=== PATIENT | female | born 1960 | race Caucasian/White ===

== ENCOUNTER 2020-02-29 00:26 | Outpatient (CLI) | payer MEDICAID | END 2020-02-29 00:27 | disposition critical access hospital (66) | LOC: EMS 00:26 | PROVIDERS: ATTEND Surgery | DX: R53.1 Weakness (principal); R07.89 Other chest pain; R51 Headache; R03.0 Elevated blood-pressure reading, without diagnosis of hypertension | CPT/HCPCS: A0425; A0427; A0999 ==

== ENCOUNTER 2020-02-29 00:57 | Emergency (ER) | payer MEDICAID ==
--- NOTE | 2020-02-29 01:00 | ED Physician Documentation ---
History of Present Illness - Stated complaint Stated Complaint: LEFT ARM WEAKNESS, JAW PAIN - History obtained from History obtained from: Patient - History of Present Illness Timing: Enter time (22:00), Today Pain level max: 4 Pain level now: 4 Improved by: no ameliorating factors Worsened by: no exacerbating factors Associated symptoms: STEPHENS, nausea, dyspnea - Additonal information Additional information: BIBA for chief complaint of LUE pain radiating to left jaw; this woke her from sleep at approximately 10 PM. Subsequently noted left-sided STEPHENS. Also has nausea but no vomiting. Patient moved recently to [facility] from [place]. She says she has HTN, supposed to be on two antihypertensives but cannot recall which ones and has not been taking them for a few years, nor has she seen a doctor for a few years, as well. Denies h/o cardiac problems. Given SLNTG en route by medics without improvement (STEPHENS worsened subsequent to NTG) Review of Systems Constitutional: reports: Reviewed and negative Eyes: reports: Reviewed and negative Ears: reports: Reviewed and negative Nose: reports: Reviewed and negative Throat: reports: Reviewed and negative Cardiac: denies: Chest pain / pressure, Palpitations, Pedal edema, Calf pain Respiratory: reports: Dyspnea. denies: Cough GI: reports: Nausea. denies: Abdominal Pain, Vomiting : denies: Dysuria, Frequency Skin: reports: Reviewed and negative Musculoskeletal: reports: Reviewed and negative Neurologic: reports: Headache. denies: Generalized weakness, Focal weakness, Numbness PD PAST MEDICAL HISTORY - Past Medical History Past Medical History: Yes Cardiovascular: Hypertension - Past Surgical History Past Surgical History: Yes General: Bowel surgery - Allergies Allergies/Adverse Reactions: Allergies Allergy/AdvReac Type Severity Reaction Status Date / Time No Known Drug Allergies Allergy Verified 02/29/20 01:05 - Living Situation Living Arrangement: reports: At home - Social History Does the pt smoke?: No PD ED PE NORMAL - Vitals Vital signs reviewed: Yes - General General: Alert and oriented X 3, No acute distress, Well developed/nourished - HEENT HEENT: PERRL, EOMI - Neck Neck: Supple, no meningeal sign - Cardiac Cardiac: RRR, No murmur, No gallop, No rub - Respiratory Respiratory: No respiratory distress, Clear bilaterally - Abdomen Abdomen: Soft, Non tender - Back Back: No CVA TTP - Derm Derm: Normal color, Warm and dry, No rash - Extremities Extremities: No edema - Neuro Neuro: Alert and oriented X 3 Results - Vitals Vitals: Vital Signs - 24 hr 02/29/20 02/29/20 02/29/20 01:05 01:30 01:45 Temperature 36.5 C Heart Rate 100 91 92 Respiratory 18 20 16 Rate Blood Pressure 243/128 H 234/121 H 201/118 H O2 Saturation 97 98 97 02/29/20 02/29/20 02/29/20 01:50 01:55 02:00 Temperature Heart Rate 71 69 66 Respiratory 18 18 17 Rate Blood Pressure 204/154 H 197/97 H 184/93 H O2 Saturation 97 97 97 02/29/20 02/29/20 02/29/20 02:05 02:10 02:15 Temperature Heart Rate 66 65 67 Respiratory 16 14 16 Rate Blood Pressure 183/93 H 179/92 H 177/95 H O2 Saturation 95 96 96 02/29/20 02/29/20 02/29/20 02:30 03:50 04:00 Temperature Heart Rate 67 74 72 Respiratory 17 18 18 Rate Blood Pressure 181/93 H 190/164 H 197/106 H O2 Saturation 96 97 97 02/29/20 02/29/20 02/29/20 04:30 05:00 05:33 Temperature Heart Rate 76 76 78 Respiratory 16 16 14 Rate Blood Pressure 196/105 H 184/78 H 193/99 H O2 Saturation 95 95 95 02/29/20 02/29/20 02/29/20 06:00 06:06 06:10 Temperature Heart Rate 86 65 62 Respiratory 16 16 14 Rate Blood Pressure 193/99 H 142/75 H 148/75 H O2 Saturation 95 97 98 02/29/20 02/29/20 02/29/20 06:15 06:30 07:21 Temperature 36.9 C Heart Rate 62 60 78 Respiratory 18 16 14 Rate Blood Pressure 139/65 H 123/60 124/74 O2 Saturation 96 96 99 Oxygen O2 Source Room air - EKG (time done) No standard instances Rate: Rate (enter#) (89) Rhythm: NSR, LAE [place]: Normal Intervals: Normal [place] QRS: LVH, Poor R wave progression Ischemia: Non specific changes - Labs Labs: Laboratory Tests 02/29/20 02/29/20 02/29/20 01:24 01:24 01:24 WBC 11.7 H RBC 4.35 Hgb 12.8 Hct 39.9 MCV 91.7 MCH 29.4 MCHC 32.1 RDW 14.0 Plt Count 302 MPV 9.3 Neut # (Auto) 9.0 H Lymph # (Auto) 1.7 [place] # (Auto) 0.7 Eos # (Auto) 0.2 Baso # (Auto) 0.1 Absolute Nucleated RBC 0.00 Nucleated RBC % 0.0 Sodium 136 Potassium 3.3 L Chloride 103 Carbon Dioxide 20 L Anion Gap 13.0 BUN 16 Creatinine 1.2 H Estimated GFR (MDRD) 46 L Glucose 140 H Calcium 8.7 Total Bilirubin 0.6 AST 14 ALT 14 Alkaline Phosphatase 91 Troponin I High Sens B-Natriuretic Peptide 400 H Total Protein 7.6 Albumin 3.8 Globulin 3.8 Albumin/Globulin Ratio 1.0 Lipase 27 02/29/20 02/29/20 01:24 03:23 WBC RBC Hgb Hct MCV MCH MCHC RDW Plt Count MPV Neut # (Auto) Lymph # (Auto) [place] # (Auto) Eos # (Auto) Baso # (Auto) Absolute Nucleated RBC Nucleated RBC % Sodium Potassium Chloride Carbon Dioxide Anion Gap BUN Creatinine Estimated GFR (MDRD) Glucose Calcium Total Bilirubin AST ALT Alkaline Phosphatase Troponin I High Sens 66.5 H* 204.3 H* B-Natriuretic Peptide Total Protein Albumin Globulin Albumin/Globulin Ratio Lipase - Rads (name of study) cxr Radiology: Prelim report reviewed, See rad report PD MEDICAL DECISION MAKING - ED course Complexity details: reviewed results, re-evaluated patient, considered differential, d/w patient ED course: although patient denies chest pain, chief c/o is LUE pain that radiates to left jaw. She has significant hypertensive BP readings in field and in ED that responded to IV lopressor, IV morphine (which was also given for her STEPHENS), and then IV labetalol. EKG c/w LVH with nonspecific ST changes in lateral leads. high sensitivity troponin is elevated on initial result (66), and 2-hr repeat is significantly higher (204). D/W Dr. Siddiqi, cardiology heating and air conditioning mechanic at [facility], who accepts transfer to [facility] Departure - Departure Disposition: 02 Transfer Acute Care Hosp Clinical Impression: NSTEMI (non-ST elevated myocardial infarction), Hypertension Condition: Stable Discharge Date/Time: 02/29/20 07:22
[2020-02-29] MEDS ORDERED: METOPROLOL 5 MG/5 ML VIAL IVP STA (01:09)
[2020-02-29] MEDS ORDERED: MORPHINE 2 MG/ML CARPUJECT IVP STA ×2 (01:09→02:30)
[2020-02-29] MEDS ORDERED: ONDANSETRON 4 MG/2 ML VIAL IVP STA ×3 (01:10→07:14)
[2020-02-29 01:30] LABS: BASOPHILS # (AUTO) 0.1 10^3/uL (0.0-0.1); BASOPHILS % (AUTO) 0.6 %; EOSINOPHILS # (AUTO) 0.2 10^3/uL (0.0-0.7); EOSINOPHILS % (AUTO) 1.4 %; HGB - HEMOGLOBIN 12.8 g/dL (12.0-16.0); LYMPHOCYTES # (AUTO) 1.7 10^3/uL (1.5-3.5); LYMPHOCYTES % (AUTO) 14.6 %; MEAN CORPUSCULAR HEMOGLOBIN 29.4 pg (27.0-31.0); MEAN CORPUSCULAR HGB CONC 32.1 g/dL (32.0-36.0); MEAN CORPUSCULAR VOLUME 91.7 fL (81.0-99.0); MEAN PLATELET VOLUME 9.3 fL (7.9-10.8); MONOCYTES # (AUTO) 0.7 10^3/uL (0.0-1.0); MONOCYTES % (AUTO) 5.7 %; NEUTROPHILS % (AUTO) 77.2 %; PLT - PLATELET COUNT 302 10^3/uL (130-450); RED BLOOD COUNT 4.35 10^6/uL (4.20-5.40); WHITE BLOOD COUNT 11.7 x10^3/uL (4.8-10.8)
[2020-02-29 01:44] LABS: ALBUMIN 3.8 g/dL (3.2-5.5); BILIRUBIN,TOTAL 0.6 mg/dL (0.2-1.0); CALCIUM 8.7 mg/dL (8.5-10.3); CREATININE 1.2 mg/dL (0.4-1.0); TOTAL PROTEIN 7.6 g/dL (6.7-8.2)
[2020-02-29] MEDS ORDERED: LABETALOL 20 MG/4 ML SYRINGE IVP STA (05:49)
[2020-02-29] MEDS ORDERED: HEPARIN 5,000 UNIT/ML VIAL ONE (06:10)
[2020-02-29 07:21] VITALS: BP 124/74
[2020-02-29] MEDS ORDERED: ONDANSETRON 4 MG/2 ML VIAL ONE (07:22)
--- NOTE | 2020-02-29 10:06 | XRAY Report ---
PROCEDURE: Chest 1 View X-Ray INDICATIONS: dyspnea TECHNIQUE: One view of the chest was acquired. COMPARISON: None available. FINDINGS: Surgical changes and devices: None. Lungs and pleura: No pleural effusions or pneumothorax. Lungs are clear, but hyperexpanded. Mediastinum: The aorta is prominent and tortuous. The cardiac contours are mildly enlarged. Bones and chest wall: No suspicious bony lesions. Age-appropriate degenerative changes are seen. Overlying soft tissues appear unremarkable. IMPRESSION: Mild cardiomegaly. Hyperexpanded lungs. Note: No significant discrepancy from the preliminary report. Reviewed by: Meño Moore MD on 02/29/2020 9:05 AM [facility] Approved by: Meño Moore MD on 02/29/2020 9:05 AM [facility] Station ID: [id number]
== END 2020-02-29 07:22 | disposition short-term general hospital (02) ==
LOC: ED 00:57
DX: I21.4 Non-ST elevation (NSTEMI) myocardial infarction (principal); I10 Essential (primary) hypertension
CPT/HCPCS: 36415; 71045; 80053; 83690; 83880; 84484; 85025; 93005; 96374; 96375; 96376; 99285

== ENCOUNTER 2020-02-29 07:23 | Outpatient (CLI) | payer MEDICAID | END 2020-02-29 07:24 | disposition short-term general hospital (02) | LOC: EMS 07:23 | PROVIDERS: ATTEND Surgery | DX: I21.4 Non-ST elevation (NSTEMI) myocardial infarction (principal) | CPT/HCPCS: A0425; A0426 ==

== ENCOUNTER 2020-03-06 08:22 | Emergency (ER) | payer MEDICAID ==
[2020-03-06] MEDS ORDERED: LORazepam 2 MG/ML VIAL IVP STA (08:58)
[2020-03-06 09:01] LABS: BASOPHILS # (AUTO) 0.1 10^3/uL (0.0-0.1); BASOPHILS % (AUTO) 0.5 %; EOSINOPHILS # (AUTO) 0.2 10^3/uL (0.0-0.7); EOSINOPHILS % (AUTO) 1.8 %; HGB - HEMOGLOBIN 11.3 g/dL (12.0-16.0); LYMPHOCYTES # (AUTO) 1.7 10^3/uL (1.5-3.5); LYMPHOCYTES % (AUTO) 12.8 %; MEAN CORPUSCULAR HEMOGLOBIN 29.2 pg (27.0-31.0); MEAN CORPUSCULAR HGB CONC 31.7 g/dL (32.0-36.0); MEAN CORPUSCULAR VOLUME 92.2 fL (81.0-99.0); MEAN PLATELET VOLUME 10.1 fL (7.9-10.8); MONOCYTES # (AUTO) 1.3 10^3/uL (0.0-1.0); MONOCYTES % (AUTO) 9.9 %; NEUTROPHILS # (AUTO) 9.7 10^3/uL (1.5-6.6); NEUTROPHILS % (AUTO) 74.5 %; PLT - PLATELET COUNT 362 10^3/uL (130-450); RED BLOOD COUNT 3.87 10^6/uL (4.20-5.40)
--- NOTE | 2020-03-06 09:01 | ED Physician Documentation ---
History of Present Illness - Stated complaint Stated Complaint: FEVER/POST PROCEDURE COMPLICATION - Chief complaint Chief Complaint: Cardiac - History obtained from History obtained from: Patient, Family - Additonal information Additional information: Patient is brought to the emergency department by her sister after experiencing borderline fever at 100 degrees last night and anxiety and shortness of breath. The patient had a cardiac catheterization done approximately 4 days ago over at [facility] after experiencing angina. She had 2 stents placed and was discharged the following day. Patient states upon discharge, she was feeling quite well, but has not been able to sleep since. She states that she is trying to quit smoking because of her coronary artery disease, but that she has had a l ot of anxiety and that this is especially bad at night. The patient states her blood pressure was out of control when she came here and that she was started on a new medication regimen in the hospital, which includes Norvasc, Coreg, and Zestril. She is also taking Lipitor, Plavix, aspirin, and Nitrostat, as well as Protonix. The patient states that she is feeling a little better now, and that her blood pressures have improved since starting her new regimen. Patient states her cath site has been steadily improving and though it is still sore, she has not noticed any redness, swelling, or induration. No other complaints at this time. Patient has not taken any Tylenol or ibuprofen for fever. The patient states she was intubated for the procedure. She is not sure if she had a urinary catheterization or not. Review of Systems Ten Systems: 10 systems reviewed and negative Constitutional: reports: Fever Eyes: reports: Reviewed and negative Ears: reports: Reviewed and negative Nose: reports: Reviewed and negative Throat: reports: Reviewed and negative Cardiac: reports: Reviewed and negative Respiratory: reports: Dyspnea GI: reports: Reviewed and negative : reports: Reviewed and negative Skin: reports: Reviewed and negative Musculoskeletal: reports: Reviewed and negative Neurologic: reports: Reviewed and negative Psychiatric: reports: Anxiety Endocrine: reports: Reviewed and negative Immunocompromised: reports: Reviewed and negative PD PAST MEDICAL HISTORY - Past Medical History Cardiovascular: Hypertension - Past Surgical History Past Surgical History: Yes General: Bowel surgery - Present Medications Home Medications: Ambulatory Orders Medication Instructions Recorded Confirmed Zolpidem Tartrate [Ambien] 10 mg PO QPM PRN #30 tablet 03/06/20 - Allergies Allergies/Adverse Reactions: Allergies Allergy/AdvReac Type Severity Reaction Status Date / Time No Known Drug Allergies Allergy Verified 03/06/20 08:40 - Social History Does the pt smoke?: No PD ED PE NORMAL - Vitals Vital signs reviewed: Yes - General General: Alert and oriented X 3, No acute distress - HEENT HEENT: Atraumatic, PERRL, EOMI, Moist mucous membranes - Neck Neck: Supple, no meningeal sign - Cardiac Cardiac: RRR, No murmur, Strong equal pulses - Respiratory Respiratory: No respiratory distress, Clear bilaterally - Abdomen Abdomen: Soft, Non tender, Non distended - Derm Derm: Warm and dry, No rash, Other (Mild subacute contusion in the patient's right inguinal area. Puncture site from catheterization is without erythema, induration, or fluctuance. No drainage. Area is appropriately mildly tender.) - Extremities Extremities: No deformity - Neuro Neuro: Alert and oriented X 3 - Psych Psych: Normal mood, Normal affect Results - Vitals Vitals: Oxygen O2 Source Room air - EKG (time done) 0839 Rate: Rate (enter#) (67) Rhythm: NSR, LAE [place]: Normal Intervals: Normal [place] QRS: LVH Ischemia: Normal ST segments, T wave inversion Compare to prior EKG: Unchanged from prior EKG (02/29/20) Computer interpretation: Agree with computer - Labs Labs: Microbiology 03/06/20 09:15 Blood Culture - Preliminary Blood NO GROWTH AFTER 2 DAYS 03/06/20 09:26 Blood Culture - Preliminary Blood NO GROWTH AFTER 2 DAYS Laboratory Tests 03/06/20 03/06/20 03/06/20 08:43 08:43 08:43 WBC 13.0 H RBC 3.87 L Hgb 11.3 L Hct 35.7 L MCV 92.2 MCH 29.2 MCHC 31.7 L RDW 14.0 Plt Count 362 MPV 10.1 Neut # (Auto) 9.7 H Lymph # (Auto) 1.7 [place] # (Auto) 1.3 H Eos # (Auto) 0.2 Baso # (Auto) 0.1 Absolute Nucleated RBC 0.00 Nucleated RBC % 0.0 Sodium 135 Potassium 4.1 Chloride 100 L Carbon Dioxide 23 Anion Gap 12.0 BUN 20 Creatinine 1.3 H Estimated GFR (MDRD) 42 L Glucose 106 H Calcium 9.4 Total Bilirubin 0.7 AST 11 ALT 16 Alkaline Phosphatase 78 Troponin I High Sens 254.7 H* B-Natriuretic Peptide Total Protein 7.6 Albumin 3.7 Globulin 3.9 Albumin/Globulin Ratio 0.9 L Lipase 40 Urine Color Urine Clarity Urine pH Ur Specific [place] Urine Protein Urine Glucose (UA) Urine Ketones Urine Occult Blood Urine Nitrite Urine Bilirubin Urine Urobilinogen Ur Leukocyte Esterase Ur Microscopic Review Urine Culture Comments 03/06/20 03/06/20 03/06/20 09:15 10:00 10:28 WBC RBC Hgb Hct MCV MCH MCHC RDW Plt Count MPV Neut # (Auto) Lymph # (Auto) [place] # (Auto) Eos # (Auto) Baso # (Auto) Absolute Nucleated RBC Nucleated RBC % Sodium Potassium Chloride Carbon Dioxide Anion Gap BUN Creatinine Estimated GFR (MDRD) Glucose Calcium Total Bilirubin AST ALT Alkaline Phosphatase Troponin I High Sens 238.5 H* B-Natriuretic Peptide 110 H Total Protein Albumin Globulin Albumin/Globulin Ratio Lipase Urine Color YELLOW Urine Clarity CLEAR Urine pH 6.5 Ur Specific [place] 1.020 Urine Protein TRACE Urine Glucose (UA) NEGATIVE Urine Ketones NEGATIVE Urine Occult Blood NEGATIVE Urine Nitrite NEGATIVE Urine Bilirubin NEGATIVE Urine Urobilinogen 0.2 (NORMAL) Ur Leukocyte Esterase NEGATIVE Ur Microscopic Review NOT INDICATED Urine Culture Comments NOT INDICATED - Rads (name of study) CXR Radiology: Final report received, EMP read indepedently, See rad report (cardiomegaly and pulmonary edema, slightly worse than previous CXR) PD MEDICAL DECISION MAKING - ED course Complexity details: reviewed old records, reviewed results, re-evaluated patient, considered differential, d/w patient, d/w family ED course: The patient was worked up with labs, EKG, and chest x-ray. I reviewed her records from [facility]. The patient's canvas goods supervisor was Dr. Harmon, with whom the patient has an upcoming appointment on March 12. The pt's troponin was elevated, which is not surprising, given the fact that she had a cardiac procedure within the past several days, and felt the likelihood of acute NE was very low. Repeat of this showed it to be slightly lower than it had been. I felt the pt's sx were mostly due to quitting smoking acutely and recently. She does also have mild underlying CHF, which was demonstrated today. We will continue her home meds for this, as the pt's sats are good here, her lungs are clear, and respirations are not fast or labored. The pt was found to be feeling better after a small dose of Ativan. She has requested a sleep aid, so I have given her a small prescription for Ambien. The pt has an appt with her service attendant cafeteria in less than a week. I have d/w her that she needs to bring these issues up with her PCP and service attendant cafeteria when she sees them. We have discussed the usual indications for return. Departure - Departure Disposition: Home, Self Care Clinical Impression: Anxiety Coronary artery disease Qualifiers: Coronary Disease-Associated Artery/Lesion type: unspecified vessel or lesion type [place] vs. transplanted heart: ho-chunk heart Associated angina: without angina Qualified Code(s): I25.10 - Atherosclerotic heart disease of [place] coronary artery without angina pectoris Condition: Stable Instructions: Anxiety Body Response, Anxiety Disorder Prescriptions: Zolpidem Tartrate [Ambien] 10 mg PO QPM PRN #30 tablet PRN Reason: Anxiety Comments: Your labs, overall, look good. Your EKG does not show signs of new blood flow compromise to your heart. The troponin, which is a chemical release from your heart muscle that we look for in your blood when there is heart muscle damage, is significantly elevated. However, this is not surprising since you just had a cardiac procedure within the last several days. The repeat level is actually a little lower than the initial level. Please continue your home medications. Please also plan to keep your follow-up appointment for next week with your service attendant cafeteria. We will put you on something for anxiety and sleep and you may follow-up with your primary care physician about further sleep assistance, if needed. If you develop severe shortness of breath or worsening chest pain, please return to the emergency department for reevaluation. Discharge Date/Time: 03/06/20 11:36
[2020-03-06 09:08] LABS: ALBUMIN 3.7 g/dL (3.2-5.5); ALBUMIN/GLOBULIN RATIO 0.9 (1.0-2.2); BILIRUBIN,TOTAL 0.7 mg/dL (0.2-1.0); CALCIUM 9.4 mg/dL (8.5-10.3); CREATININE 1.3 mg/dL (0.4-1.0); TOTAL PROTEIN 7.6 g/dL (6.7-8.2)
--- NOTE | 2020-03-06 09:25 | XRAY Report ---
PROCEDURE: Chest 1 View X-Ray INDICATIONS: Chest pain TECHNIQUE: One view of the chest was acquired. COMPARISON: 02/29/2020. FINDINGS: Surgical changes and devices: None. Lungs and pleura: There is increased perihilar pulmonary vascular prominence with a basilar predomin ance suggestive of pulmonary edema. No pleural effusions or pneumothorax. Mediastinum: Mediastinal contours appear unchanged. Heart size is enlarged. Bones and chest wall: No suspicious bony lesions. Overlying soft tissues appear unremarkable. IMPRESSION: 1. Cardiomegaly with increased pulmonary edema suggestive of congestive heart failure. Reviewed by: Shayne Benavidez MD on 03/06/2020 9:23 AM PDT Approved by: Shayne Benavidez MD on 03/06/2020 9:23 AM PDT Station ID: [id number]
[2020-03-06 10:17] LABS: BILIRUBIN,URINE NEGATIVE (NEGATIVE); GLUCOSE, URINE (UA) NEGATIVE (NEGATIVE); KETONES,URINE (UA) NEGATIVE (NEGATIVE); LEUKOCYTE ESTERASE, URINE NEGATIVE (NEGATIVE); NITRITE,URINE NEGATIVE (NEGATIVE); OCCULT BLOOD,URINE NEGATIVE (NEGATIVE); PH,URINE 6.5 PH (5.0-7.5); PROTEIN,URINE TRACE mg/dL (NEGATIVE); UROBILINOGEN,URINE 0.2 (NORMAL) E.U./dL (NORMAL)
[2020-03-06 10:19] LABS: CLARITY,URINE CLEAR (CLEAR)
[2020-03-06 11:04] VITALS: BP 161/79
== END 2020-03-06 11:36 | disposition home or self-care (01) ==
LOC: ED 08:22
DX: F41.9 Anxiety disorder, unspecified (principal); I11.0 Hypertensive heart disease with heart failure; I50.9 Heart failure, unspecified; I25.10 Atherosclerotic heart disease of native coronary artery without angina pectoris; Z98.61 Coronary angioplasty status; Z87.891 Personal history of nicotine dependence; Z79.02 Long term (current) use of antithrombotics/antiplatelets; Z79.82 Long term (current) use of aspirin
CPT/HCPCS: 36415; 71045; 80053; 81003; 83690; 83880; 84484; 85025; 87040; 93005; 96374; 99284; 99285; J2060; 81001; 87086

== ENCOUNTER 2020-04-29 09:20 | Outpatient (CLI) | payer MEDICAID ==
--- NOTE | 2020-04-29 15:13 | CT Report ---
PROCEDURE: Low Dose Lung Cancer Screen INDICATIONS: HX OF SMOKING TECHNIQUE: Noncontrast low-dose 5 mm thick sections acquired from the pulmonary apices to the posterior costophr enic angles. 7 mm thick coronal and sagittal MIP reformats were then acquired. For radiation dose r eduction, the following was used: automated exposure control, adjustment of mA and/or kV according t o patient size. COMPARISON: Chest x-ray 03/06/2020, 02/29/2020 FINDINGS: Image quality: Excellent. Lungs and pleura: No effusions or consolidations. No pneumothorax. No nodules are identified. Mediastinum: Heart size is normal. No pericardial effusion. No mediastinal adenopathy by size crit eria. Thoracic aorta and central pulmonary arteries are normal in size. Esophagus is normal in cony alondra. No hiatal hernia. Bones and chest wall: No suspicious bony lesions. No vertebral body compression fractures. No axil mona or supraclavicular adenopathy by size criteria. The thyroid is normal in size. Abdomen: Visualized upper abdomen solid organs and bowel loops appear normal in the absence of contr ast. IMPRESSION: 1. No acute pulmonary process. Lung rads category 1. Recommendation: Annual CT screening. Reviewed by: Odalis Rodriugez MD on 04/29/2020 3:11 PM PDT Approved by: Odalis Rodriguez MD on 04/29/2020 3:11 PM PDT Station ID: [id number]
== END 2020-04-29 09:21 | disposition home or self-care (01) ==
LOC: DI 09:20
PROVIDERS: ATTEND Registered Nurse
DX: Z12.2 Encounter for screening for malignant neoplasm of respiratory organs (principal); F17.210 Nicotine dependence, cigarettes, uncomplicated

== ENCOUNTER 2020-09-07 07:24 | Outpatient (CLI) | payer MEDICAID ==
[2020-09-07 16:05] LABS: BASOPHILS # (AUTO) 0.1 10^3/uL (0.0-0.1); EOSINOPHILS # (AUTO) 0.2 10^3/uL (0.0-0.7); EOSINOPHILS % (AUTO) 1.8 %; HCT - HEMATOCRIT 40.7 % (37.0-47.0); HGB - HEMOGLOBIN 12.8 g/dL (12.0-16.0); LYMPHOCYTES # (AUTO) 1.8 10^3/uL (1.5-3.5); LYMPHOCYTES % (AUTO) 18.3 %; MEAN CORPUSCULAR HEMOGLOBIN 31.1 pg (27.0-31.0); MEAN CORPUSCULAR HGB CONC 31.4 g/dL (32.0-36.0); MEAN CORPUSCULAR VOLUME 98.8 fL (81.0-99.0); MEAN PLATELET VOLUME 10.1 fL (7.9-10.8); MONOCYTES # (AUTO) 0.9 10^3/uL (0.0-1.0); NEUTROPHILS # (AUTO) 6.7 10^3/uL (1.5-6.6); NEUTROPHILS % (AUTO) 69.6 %; PLT - PLATELET COUNT 352 10^3/uL (130-450); RED BLOOD COUNT 4.12 10^6/uL (4.20-5.40); RED CELL DISTRIBUTION WIDTH 13.5 % (12.0-15.0); WHITE BLOOD COUNT 9.6 x10^3/uL (4.8-10.8)
[2020-09-07 16:32] LABS: ALBUMIN 3.8 g/dL (3.2-5.5); ALKALINE PHOSPHATASE 87 IU/L (42-121); ALT ALANINE AMINOTRANSFERASE 17 IU/L (10-60); AST ASPARTATE AMINOTRANSFERASE 15 IU/L (10-42); BILIRUBIN,TOTAL 0.5 mg/dL (0.2-1.0); BUN - BLOOD UREA NITROGEN 17 mg/dL (6-20); CALCIUM 8.9 mg/dL (8.5-10.3); CARBON DIOXIDE - CO2 22 mmol/L (21-32); CHLORIDE 105 mmol/L (101-111); GFR - MDRD 57 (>89); GLUCOSE 131 mg/dL (70-100); POTASSIUM 4.3 mmol/L (3.5-5.0); SODIUM 136 mmol/L (135-145); TOTAL PROTEIN 7.8 g/dL (6.7-8.2)
[2020-09-07 16:33] LABS: CHOLESTEROL 135 mg/dL; HDL CHOLESTEROL 45 mg/dL; LDL CHOLESTEROL,CALCULATED 37 mg/dL; LDL/HDL RATIO 0.8 (<4.4); TRIGLYCERIDES 264 mg/dL; VLDL CHOLESTEROL 53 mg/dL
[2020-09-07 16:35] LABS: THYROID STIMULATING HORMONE 3.09 uIU/mL (0.34-5.60)
== END 2020-09-07 07:25 | disposition home or self-care (01) ==
LOC: LAB.S 07:24
PROVIDERS: ATTEND Registered Nurse
DX: G43.909 Migraine, unspecified, not intractable, without status migrainosus (principal); I25.110 Atherosclerotic heart disease of native coronary artery with unstable angina pectoris; F17.200 Nicotine dependence, unspecified, uncomplicated; F41.8 Other specified anxiety disorders
CPT/HCPCS: 36415; 80050; 80061; 83721

== ENCOUNTER 2020-10-30 08:00 | Outpatient (CLI) | payer MEDICAID ==
--- NOTE | 2020-10-30 16:21 | XRAY Report ---
PROCEDURE: Foot 3 View LT INDICATIONS: SPRAIN OF LEFT FOOT TECHNIQUE: 3 views of the foot were acquired. COMPARISON: None FINDINGS: Bones: No fractures or dislocations. No suspicious bony lesions. Soft tissues: No tibiotalar joint effusion. Achilles tendon appears normal. IMPRESSION: No visualized acute fracture or dislocation. However, occult injury cannot be excluded. Recommend ban rt interval imaging follow-up in 7-10 days as clinically indicated for additional evaluation. Reviewed by: Odalis Rodriguez MD on 10/30/2020 4:19 PM PDT Approved by: Odalis Rodriguez MD on 10/30/2020 4:19 PM PDT Station ID: [id number]
== END 2020-10-30 23:59 | disposition home or self-care (01) ==
LOC: DI.S 08:00
PROVIDERS: ATTEND Emergency Medicine
DX: S93.602A Unspecified sprain of left foot, initial encounter (principal)

== ENCOUNTER 2021-02-02 10:55 | Outpatient (CLI) | payer MEDICAID ==
--- NOTE | 2021-02-03 13:48 | Mammography Report ---
BILATERAL DIGITAL SCREENING MAMMOGRAM 3D/2D WITH EXAGGERATED CC: 02/02/2021 CLINICAL: Routine screening. Family history of breast cancer. Comparison is made to exam dated: 01/30/2015 mammogram - [facility]. There are scattered fibroglandular elements in both breasts. There is an oval focal asymmetry with an obscured margin in the right breast central to the nipple an terior depth. This is more prominent. No other significant masses, calcifications, or other findings are seen in either breast. IMPRESSION: INCOMPLETE: NEEDS ADDITIONAL IMAGING EVALUATION The oval focal asymmetry in the right breast is indeterminate. Additional views with possible ultrasound are recommended. This exam was interpreted at Station ID: [id number]. NOTE: For mammograms, a report in lay terms will be sent to the patient. Approximately 15% of breast malignancies will not be visualized mammographically. In the management of a palpable breast mass, a negative mammogram must not discourage biopsy of a clinically suspicious lesion. Electronically Signed By: Ari Keenan M.D. slc/:02/02/2021 17:26:16 ACR BI-RADS Category 0: Incomplete 3340F PARENCHYMAL PATTERN: (A) - The breast(s) demonstrate(s) scattered fibroglandular densities. BI-RADS CATEGORY: (0) - 0 Mammo and US [id number] Immediate follow-up LATERALITY: (B)
== END 2021-02-02 10:56 | disposition home or self-care (01) ==
LOC: DI.S 10:55
DX: Z12.31 Encounter for screening mammogram for malignant neoplasm of breast (principal); R92.8 Other abnormal and inconclusive findings on diagnostic imaging of breast; Z80.3 Family history of malignant neoplasm of breast

== ENCOUNTER 2021-02-18 08:42 | Outpatient (CLI) | payer MEDICAID ==
--- NOTE | 2021-02-19 13:36 | Ultrasound Report ---
LIMITED ULTRASOUND OF RIGHT BREAST: 02/18/2021 CLINICAL: Patient returns today to evaluate a focal asymmetry in the right breast. Comparison is made to exams dated: 02/18/2021 mammogram, 02/02/2021 mammogram - [facility], 01/30/2015 mammogram, and 12/29/2008 mammogram - [facility] [place]. Color flow and real-time ultrasound of the right breast 7 o'clock region were performed. [place] scale images of the real-time examination were reviewed. There is a 0.7 cm x 0.8 cm x 0.7 cm cluster of irregular cysts in the right breast at 7 o'clock anter ior depth 2 cm from the nipple. This cluster of irregular cysts is anechoic. This correlates with u ltrasound findings. Color flow imaging demonstrates that there is an adjacent vascularity. IMPRESSION: PROBABLY BENIGN The 0.7 cm x 0.8 cm x 0.7 cm cluster of irregular cysts in the right breast most likely is a complica [place] cyst or complicated cysts and is probably benign. A follow-up mammogram and an ultrasound in 6 months is recommended to demonstrate stability. Findin gs and recommendations were conveyed to the patient at time of exam. This exam was interpreted at Station ID: [id number]. Electronically Signed By: Jazmin estevez/:02/18/2021 10:24:00 Ultrasound BI-RADS: 3 Probably benign BI-RADS CATEGORY: (3) - 3 Mammo and US [id number] 6 month follow-up LATERALITY: (B)
--- NOTE | 2021-02-19 13:36 | Mammography Report ---
UNILATERAL RIGHT DIGITAL DIAGNOSTIC MAMMOGRAM 3D/2D: 02/18/2021 CLINICAL: Patient returns today to evaluate a focal asymmetry in the right breast. Comparison is made to exams dated: 02/02/2021 mammogram - [facility], 01/30/2015 [facility], and 12/29/2008 mammogram - [facility]. There are scattered fibroglandular elements in right breast. There is a 9 mm round equal density focal asymmetry with a circumscribed margin in the right breast a t 6 o'clock anterior depth. This is confirmed with additional views. This has increased in size com pared to prior studies. No other significant masses or calcifications are seen in the breast. IMPRESSION: INCOMPLETE: NEEDS ADDITIONAL IMAGING EVALUATION The 9 mm round equal density focal asymmetry in the right breast is probably a cyst but remains indet erminate. An ultrasound is recommended. This was performed immediately following this exam. This exam was interpreted at Station ID: [id number]. NOTE: For mammograms, a report in lay terms will be sent to the patient. Approximately 15% of breast malignancies will not be visualized mammographically. In the management of a palpable breast mass, a negative mammogram must not discourage biopsy of a clinically suspicious lesion. Electronically Signed By: Jazmin estevez/:02/18/2021 09:43:55 ACR BI-RADS Category 0: Incomplete 3340F PARENCHYMAL PATTERN: (A) - The breast(s) demonstrate(s) scattered fibroglandular densities. BI-RADS CATEGORY: (0) - 0 Ultrasound [id number] Immediate follow-up LATERALITY: (B)
== END 2021-02-18 08:43 | disposition home or self-care (01) ==
LOC: DI 08:42
PROVIDERS: ATTEND Registered Nurse
DX: R92.8 Other abnormal and inconclusive findings on diagnostic imaging of breast (principal); N60.11 Diffuse cystic mastopathy of right breast

== ENCOUNTER 2021-07-23 07:19 | Outpatient (CLI) | payer MEDICAID ==
[2021-07-23 15:20] LABS: BASOPHILS # (AUTO) 0.1 10^3/uL (0.0-0.1); BASOPHILS % (AUTO) 1.1 %; EOSINOPHILS # (AUTO) 0.1 10^3/uL (0.0-0.7); EOSINOPHILS % (AUTO) 1.6 %; HCT - HEMATOCRIT 41.3 % (37.0-47.0); HGB - HEMOGLOBIN 13.4 g/dL (12.0-16.0); LYMPHOCYTES # (AUTO) 2.1 10^3/uL (1.5-3.5); LYMPHOCYTES % (AUTO) 24.1 %; MEAN CORPUSCULAR HEMOGLOBIN 31.8 pg (27.0-31.0); MEAN CORPUSCULAR HGB CONC 32.4 g/dL (32.0-36.0); MEAN CORPUSCULAR VOLUME 97.9 fL (81.0-99.0); MEAN PLATELET VOLUME 10.4 fL (7.9-10.8); MONOCYTES # (AUTO) 0.7 10^3/uL (0.0-1.0); MONOCYTES % (AUTO) 7.6 %; NEUTROPHILS # (AUTO) 5.7 10^3/uL (1.5-6.6); NEUTROPHILS % (AUTO) 65.3 %; PLT - PLATELET COUNT 314 10^3/uL (130-450); RED BLOOD COUNT 4.22 10^6/uL (4.20-5.40); RED CELL DISTRIBUTION WIDTH 13.2 % (12.0-15.0); WHITE BLOOD COUNT 8.8 x10^3/uL (4.8-10.8)
[2021-07-23 15:32] LABS: ALBUMIN 3.8 g/dL (3.2-5.5); ALBUMIN/GLOBULIN RATIO 1.1 (1.0-2.2); ALKALINE PHOSPHATASE 90 IU/L (42-121); ALT ALANINE AMINOTRANSFERASE 16 IU/L (10-60); AST ASPARTATE AMINOTRANSFERASE 18 IU/L (10-42); BILIRUBIN,TOTAL 0.5 mg/dL (0.2-1.0); BUN - BLOOD UREA NITROGEN 15 mg/dL (6-20); CALCIUM 9.1 mg/dL (8.5-10.3); CARBON DIOXIDE - CO2 24 mmol/L (21-32); CHLORIDE 103 mmol/L (101-111); CHOL/HDL RATIO 2.9 (<4.4); CHOLESTEROL 120 mg/dL; CREATININE 1.2 mg/dL (0.4-1.0); GFR - MDRD 46 (>89); GLUCOSE 151 mg/dL (70-100); HDL CHOLESTEROL 41 mg/dL; LDL CHOLESTEROL,CALCULATED 42 mg/dL; POTASSIUM 4.2 mmol/L (3.5-5.0); SODIUM 137 mmol/L (135-145); TOTAL PROTEIN 7.4 g/dL (6.7-8.2); TRIGLYCERIDES 183 mg/dL; VLDL CHOLESTEROL 37 mg/dL
== END 2021-07-23 07:20 | disposition home or self-care (01) ==
LOC: LAB.S 07:19
PROVIDERS: ATTEND Internal Medicine
DX: E78.5 Hyperlipidemia, unspecified (principal)
CPT/HCPCS: 36415; 80053; 80061; 83721; 85025

== ENCOUNTER 2021-08-24 07:59 | Outpatient (CLI) | payer MEDICAID ==
--- NOTE | 2021-08-24 10:12 | XRAY Report ---
PROCEDURE: Cervical Spine 2 View INDICATIONS: BACK PAIN TECHNIQUE: 3 view(s) of the cervical spine were acquired. COMPARISON: None. FINDINGS: Bones: No fractures or dislocations to the C7 level. The lateral masses of C1 appear intact on the odontoid view. No suspicious bony lesions. Disc space narrowing and endplate osteophyte formation w ithin the mid and lower cervical spine. Soft tissues: No prevertebral soft tissue swelling. IMPRESSION: Lower cervical degenerative disc disease. No acute fracture. No osseous lesion. If sympt oms and/or clinical suspicion for pathology continue, further assessment with repeat plain films, or advanced imaging (e.g., CT, MRI, or bone scan) is recommended for further assessment. Reviewed by: Rosario Mai MD on 08/24/2021 10:10 AM PST Approved by: Rosario Mai MD on 08/24/2021 10:10 AM [facility] Station ID: [id number]
--- NOTE | 2021-08-24 11:10 | XRAY Report ---
PROCEDURE: Thoracic Spine 2 View INDICATIONS: BACK PAIN TECHNIQUE: 3 views of the thoracic spine were acquired. COMPARISON: None. FINDINGS: Bones: No fractures or dislocations. No suspicious bony lesions. 12 pairs of ribs are noted, and a ppear intact where visualized. Moderate degenerative changes noted throughout the thoracic spine. Soft tissues: No paravertebral stripe thickening. IMPRESSION: 1. Multilevel degenerative disease. 2. No fracture. No acute osseous lesion. If there is continued clinical concern for pathology, then M [facility] should be considered for further evaluation. Reviewed by: Paula Kitchen MD, PhD on 08/24/2021 11:09 AM PST Approved by: Paula Kitchen MD, PhD on 08/24/2021 11:09 AM PST Station ID: [id number]
[2021-08-24 20:52] LABS: ESTIMATED AVERAGE GLUCOSE 131 mg/dL (70-100); HEMOGLOBIN A1c% 6.2 % (4.27-6.07)
== END 2021-08-24 08:00 | disposition home or self-care (01) ==
LOC: DI.S 07:59
PROVIDERS: ATTEND Internal Medicine
DX: M54.9 Dorsalgia, unspecified (principal); M50.30 Other cervical disc degeneration, unspecified cervical region; M51.34 Other intervertebral disc degeneration, thoracic region; R73.9 Hyperglycemia, unspecified
CPT/HCPCS: 36415; 83036

== ENCOUNTER 2021-09-02 17:06 | Outpatient (CLI) | payer MEDICAID | END 2021-09-02 17:07 | disposition short-term general hospital (02) | LOC: EMS 17:06 | DX: R07.89 Other chest pain (principal); R61 Generalized hyperhidrosis; R11.0 Nausea; R68.84 Jaw pain; M79.603 Pain in arm, unspecified | CPT/HCPCS: A0425; A0433; A0999 ==

== ENCOUNTER 2022-05-23 18:15 | Outpatient (CLI) | payer MEDICAID | END 2022-05-23 23:59 | disposition EMS.NT | LOC: EMS 18:15 | DX: R42 Dizziness and giddiness (principal); R11.2 Nausea with vomiting, unspecified ==

== ENCOUNTER 2022-06-06 08:34 | Outpatient (CLI) | payer MEDICAID ==
[2022-06-06 15:09] LABS: BASOPHILS # (AUTO) 0.1 10^3/uL (0.0-0.1); EOSINOPHILS # (AUTO) 0.2 10^3/uL (0.0-0.7); HCT - HEMATOCRIT 40.4 % (37.0-47.0); HGB - HEMOGLOBIN 12.4 g/dL (12.0-16.0); LYMPHOCYTES # (AUTO) 1.9 10^3/uL (1.5-3.5); LYMPHOCYTES % (AUTO) 21.2 %; MEAN CORPUSCULAR HEMOGLOBIN 30.1 pg (27.0-31.0); MEAN CORPUSCULAR HGB CONC 30.7 g/dL (32.0-36.0); MEAN CORPUSCULAR VOLUME 98.1 fL (81.0-99.0); MEAN PLATELET VOLUME 10.8 fL (7.9-10.8); MONOCYTES # (AUTO) 0.7 10^3/uL (0.0-1.0); NEUTROPHILS # (AUTO) 6.2 10^3/uL (1.5-6.6); NEUTROPHILS % (AUTO) 67.6 %; PLT - PLATELET COUNT 318 10^3/uL (130-450); RED BLOOD COUNT 4.12 10^6/uL (4.20-5.40); RED CELL DISTRIBUTION WIDTH 12.8 % (12.0-15.0); WHITE BLOOD COUNT 9.1 x10^3/uL (4.8-10.8)
[2022-06-06 15:12] LABS: SLIDE REVIEW? Indicated
[2022-06-06 15:26] LABS: ALBUMIN 3.4 g/dL (3.2-5.5); ALBUMIN/GLOBULIN RATIO 0.9 (1.0-2.2); ALKALINE PHOSPHATASE 86 IU/L (42-121); ALT ALANINE AMINOTRANSFERASE 17 IU/L (10-60); AST ASPARTATE AMINOTRANSFERASE 17 IU/L (10-42); BILIRUBIN,TOTAL 0.5 mg/dL (0.2-1.0); BUN - BLOOD UREA NITROGEN 17 mg/dL (6-20); CALCIUM 9.3 mg/dL (8.5-10.3); CARBON DIOXIDE - CO2 25 mmol/L (21-32); CHLORIDE 106 mmol/L (101-111); CHOL/HDL RATIO 2.8 (<4.4); CHOLESTEROL 110 mg/dL; CREATININE 1.2 mg/dL (0.4-1.0); GFR - MDRD 46 (>89); GLUCOSE 155 mg/dL (70-100); HDL CHOLESTEROL 40 mg/dL; LDL CHOLESTEROL,CALCULATED 34 mg/dL; LDL/HDL RATIO 0.9 (<4.4); POTASSIUM 4.6 mmol/L (3.5-5.0); SODIUM 141 mmol/L (135-145); TOTAL PROTEIN 7.4 g/dL (6.7-8.2); TRIGLYCERIDES 182 mg/dL; VLDL CHOLESTEROL 36 mg/dL
[2022-06-06 15:36] LABS: THYROID STIMULATING HORMONE 4.34 uIU/mL (0.34-5.60)
[2022-06-06 15:50] LABS: PLATELET ESTIMATE, MANUAL NORMAL (130-450,000) (NORMAL); PLATELET MORPHOLOGY NORMAL APPEARANCE (NORMAL); RBC MORPHOLOGY (MULTIPLE) NORMAL APPEARANCE (NORMAL)
== END 2022-06-06 08:35 | disposition home or self-care (01) ==
LOC: LAB.S 08:34
PROVIDERS: ATTEND Registered Nurse
DX: Z79.899 Other long term (current) drug therapy (principal); Z13.220 Encounter for screening for lipoid disorders; Z13.29 Encounter for screening for other suspected endocrine disorder
CPT/HCPCS: 36415; 80050; 80061; 83721

== ENCOUNTER 2022-12-13 07:23 | Outpatient (CLI) | payer MEDICAID ==
[2022-12-13 14:51] LABS: CALCIUM 9.2 mg/dL (8.5-10.3); CREATININE 1.2 mg/dL (0.4-1.0); POTASSIUM 4.1 mmol/L (3.5-5.0); URIC ACID 5.6 mg/dL (2.6-7.2)
[2022-12-13 20:36] LABS: ESTIMATED AVERAGE GLUCOSE 120 mg/dL (70-100); HEMOGLOBIN A1c% 5.8 % (4.27-6.07)
== END 2022-12-13 07:24 | disposition home or self-care (01) ==
LOC: LAB.S 07:23
PROVIDERS: ATTEND Registered Nurse
DX: R73.9 Hyperglycemia, unspecified (principal)
CPT/HCPCS: 36415; 80048; 82043; 82570; 83036; 84550

== ENCOUNTER 2023-06-30 06:12 | Day surgery (SDC) | payer MEDICAID ==
[2023-06-30] MEDS ORDERED: LACTATED RINGERS 1,000 ML IV ONE (06:25)
[2023-06-30] MEDS ORDERED: PROPOFOL 500 MG/50 ML 500 MG/50 ML VIAL ONE (06:56)
--- NOTE | 2023-06-30 07:14 | ANESTHESIA ---
Pre-Anesthesia VS, & Labs - Diagnosis SCREENING - Procedure COLONOSCOPY Vital Signs: Temp Pulse Resp BP Pulse Ox O2 Flow Rate 36.3 C L 79 19 147/74 H 97 06/30/23 06:25 06/30/23 06:25 06/30/23 06:25 06/30/23 06:25 06/30/23 06:25 Height: 5 ft 6 in Weight (kg): 111.7 kg Body Mass Index: 39.7 BMI Classification: Obese - NPO Last Fluid Intake: PREP AT 0430 - Is Patient ?: No Home Medications and Allergies Home Medications: Ambulatory Orders Amlodipine Besylate [Norvasc] 10 mg PO DAILY 06/23/23 Aspirin [Aspirin EC] 81 mg PO DAILY 06/23/23 Atorvastatin Calcium 40 mg PO DAILY 06/23/23 Clopidogrel [Plavix] 75 mg PO DAILY 06/23/23 Empagliflozin [Jardiance] 10 mg PO DAILY 06/23/23 Losartan [Cozaar] 50 mg PO DAILY 06/23/23 Nitroglycerin [Nitrostat] 0.4 mg SL [id number] PRN 06/23/23 carvediloL [Coreg] 6.25 mg PO BID 06/23/23 metFORMIN [Glucophage] 1,000 mg PO BIDWM 06/23/23 traZODone [Desyrel] 100 mg PO HS 06/23/23 Amlodipine Besylate [Norvasc] 10 mg PO DAILY 06/23/23 Aspirin [Aspirin EC] 81 mg PO DAILY 06/23/23 Atorvastatin Calcium 40 mg PO DAILY 06/23/23 Clopidogrel [Plavix] 75 mg PO DAILY 06/23/23 Empagliflozin [Jardiance] 10 mg PO DAILY 06/23/23 Losartan [Cozaar] 50 mg PO DAILY 06/23/23 Nitroglycerin [Nitrostat] 0.4 mg SL [id number] PRN 06/23/23 carvediloL [Coreg] 6.25 mg PO BID 06/23/23 metFORMIN [Glucophage] 1,000 mg PO BIDWM 06/23/23 traZODone [Desyrel] 100 mg PO HS 06/23/23 Allergies/Adverse Reactions: Allergies Allergy/AdvReac Type Severity Reaction Status Date / Time No Known Drug Allergies Allergy Verified 03/06/20 08:40 Anes History & Medical History - Anesthetic History Anesthesia Complications: reports: No previous complications Family history of Anesthesia Complications: Denies Family history of Malignant Hyperthermia: Denies - Medical History Cardiovascular: reports: Hypertension, Coronary artery disease (HAS TWO STENTS, TAKES PLAVIX; NO CP, SOME SOB), [facility] Pulmonary: reports: Shortness of breath Gastrointestinal: reports: GERD (NO MEDS CURRENTLY; OCCASIONAL, DOESNT SLEEP ELEVATED ON PILLOWS) Urinary: reports: Incontinence Neuro: reports: None Musculoskeletal: reports: Chronic back pain Endocrine/Autoimmune: reports: Type 2 diabetes Skin: reports: None Smoking Status: Former smoker (40 YEARS, QUIT 2 YEARS AGO) - Surgical History General: reports: Bowel surgery, Colonoscopy Cardiothoracic: reports: Coronary stent Results - EKG Results EKG Comparison: Reviewed EKG Exam General: Alert, Oriented x3, Cooperative, No acute distress Dental: Dentures full Upper (OUT) Mouth Openin Fingerbreadth Neck Mobility: Normal Mallampati classification: III Thyromental Distance: 4-6 cm Plan Anesthesia Type: Total IV Consent for Procedure(s) Verified and Reviewed: Yes Code Status: Attempt Resuscitation ASA classification: 3-Severe systemic disease Is this case an emergency?: No
[2023-06-30] MEDS ORDERED: LACTATED RINGERS 500 ML IV ONE (08:03)
[2023-06-30 08:26] VITALS: BP 127/66; O2SAT 98
--- NOTE | 2023-06-30 08:55 | ANESTHESIA POST OP EVALUATION ---
Anesthesia Post Eval - Post Anesthesia Eval Vitals: Last Vital Signs Temp 36.5 C 06/30/23 08:03 Pulse 66 06/30/23 08:21 Resp 16 06/30/23 08:21 BP 127/66 06/30/23 08:21 Pulse Ox 98 06/30/23 08:21 O2 Flow Rate CV Function Including HR & BP: Stable Pain Control: Satisfactory Nausea & Vomiting: Negative Mental Status: Baseline Respiratory Status: Airway Patent Hydration Status: Satisfactory Anesthesia Complications: None
== END 2023-06-30 06:13 | disposition home or self-care (01) ==
LOC: SDS 06:12
PROVIDERS: ATTEND Surgery
DX: Z12.11 Encounter for screening for malignant neoplasm of colon (principal); K57.30 Diverticulosis of large intestine without perforation or abscess without bleeding; I25.2 Old myocardial infarction; Z95.5 Presence of coronary angioplasty implant and graft; E66.9 Obesity, unspecified; Z68.39 Body mass index [BMI] 39.0-39.9, adult; E11.9 Type 2 diabetes mellitus without complications; I25.10 Atherosclerotic heart disease of native coronary artery without angina pectoris; I10 Essential (primary) hypertension; Z79.84 Long term (current) use of oral hypoglycemic drugs; Z79.02 Long term (current) use of antithrombotics/antiplatelets; Z79.82 Long term (current) use of aspirin; F17.210 Nicotine dependence, cigarettes, uncomplicated; Z90.49 Acquired absence of other specified parts of digestive tract; Z87.19 Personal history of other diseases of the digestive system
CPT/HCPCS: 45378; J7120

== ENCOUNTER 2023-10-19 07:16 | Outpatient (CLI) | payer MEDICAID ==
[2023-10-19 14:32] LABS: BASOPHILS % (AUTO) 0.8 %; EOSINOPHILS % (AUTO) 1.3 %; HCT - HEMATOCRIT 39.5 % (37.0-47.0); HGB - HEMOGLOBIN 12.3 g/dL (12.0-16.0); LYMPHOCYTES % (AUTO) 20.3 %; MEAN CORPUSCULAR HEMOGLOBIN 30.5 pg (27.0-31.0); MEAN CORPUSCULAR HGB CONC 31.1 g/dL (32.0-36.0); MEAN PLATELET VOLUME 11.1 fL (7.9-10.8); MONOCYTES % (AUTO) 20.3 %; NEUTROPHILS % (AUTO) 55.3 %; RED BLOOD COUNT 4.03 10^6/uL (4.20-5.40); RED CELL DISTRIBUTION WIDTH 13.9 % (12.0-15.0); WHITE BLOOD COUNT 8.5 x10^3/uL (4.8-10.8)
[2023-10-19 15:13] LABS: ALBUMIN/GLOBULIN RATIO 1.1 (1.0-2.2); ALKALINE PHOSPHATASE 88 IU/L (42-121); ALT ALANINE AMINOTRANSFERASE 21 IU/L (10-60); AST ASPARTATE AMINOTRANSFERASE 19 IU/L (10-42); BILIRUBIN,TOTAL 0.5 mg/dL (0.2-1.0); BUN - BLOOD UREA NITROGEN 17 mg/dL (6-20); CALCIUM 9.6 mg/dL (8.5-10.3); CARBON DIOXIDE - CO2 25 mmol/L (21-32); CHLORIDE 106 mmol/L (101-111); CHOL/HDL RATIO 2.5 (<4.4); CHOLESTEROL 109 mg/dL; CREATININE 1.2 mg/dL (0.6-1.3); GFR - MDRD 45 (>89); GLUCOSE 165 mg/dL (74-104); HDL CHOLESTEROL 44 mg/dL; LDL CHOLESTEROL,CALCULATED 27 mg/dL; LDL/HDL RATIO 0.6 (<4.4); POTASSIUM 4.3 mmol/L (3.5-4.5); SODIUM 138 mmol/L (135-145); TOTAL PROTEIN 7.5 g/dL (6.4-8.9); TRIGLYCERIDES 190 mg/dL (48-352); VLDL CHOLESTEROL 38 mg/dL
[2023-10-19 15:21] LABS: ABNORMAL LYMPHS % (MANUAL) 0 %; BAND NEUTROPHILS % (MANUAL) 0 %; PLATELET ESTIMATE, MANUAL NORMAL (130-450,000) (NORMAL); PLATELET MORPHOLOGY PLATELET CLUMPING (NORMAL)
[2023-10-19 15:25] LABS: DIFFERENTIAL COMMENT MANUAL DIFFERENTIAL; EOSINOPHILS # (MANUAL) 0.3 10^3/uL (0-0.7); LYMPHOCYTES # (MANUAL) 1.2 10^3/uL (1.5-3.5); LYMPHOCYTES % (MANUAL) 14 %; MONOCYTES # (MANUAL) 0.7 10^3/uL (0.0-1.0); NEUTROPHILS # (MANUAL) 6.4 10^3/uL (1.5-6.6); RBC MORPHOLOGY (MULTIPLE) NORMAL APPEARANCE (NORMAL); WBC MORPHOLOGY (MULTIPLE) 1+ SMUDGE CELLS (NORMAL)
[2023-10-19 15:52] LABS: THYROID STIMULATING HORMONE 4.83 uIU/mL (0.34-5.60)
[2023-10-20 11:58] LABS: ESTIMATED AVERAGE GLUCOSE 160 mg/dL (70-100); HEMOGLOBIN A1c% 7.2 % (4.27-6.07)
== END 2023-10-19 07:17 | disposition home or self-care (01) ==
LOC: LAB.S 07:16
PROVIDERS: ATTEND Registered Nurse
DX: E11.9 Type 2 diabetes mellitus without complications (principal); Z13.228 Encounter for screening for other metabolic disorders; Z13.220 Encounter for screening for lipoid disorders; Z13.29 Encounter for screening for other suspected endocrine disorder; Z13.0 Encounter for screening for diseases of the blood and blood-forming organs and certain disorders involving the immune mechanism
CPT/HCPCS: 36415; 80050; 80061; 82043; 82570; 83036; 83721

== ENCOUNTER 2023-11-21 07:07 | Outpatient (CLI) | payer MEDICAID ==
[2023-11-21 14:46] LABS: BASOPHILS # (AUTO) 0.1 10^3/uL (0.0-0.1); BASOPHILS % (AUTO) 0.8 %; EOSINOPHILS # (AUTO) 0.2 10^3/uL (0.0-0.7); HCT - HEMATOCRIT 41.6 % (37.0-47.0); HGB - HEMOGLOBIN 12.4 g/dL (12.0-16.0); LYMPHOCYTES # (AUTO) 2.2 10^3/uL (1.5-3.5); LYMPHOCYTES % (AUTO) 23.3 %; MEAN CORPUSCULAR HEMOGLOBIN 30.2 pg (27.0-31.0); MEAN CORPUSCULAR HGB CONC 29.8 g/dL (32.0-36.0); MEAN CORPUSCULAR VOLUME 101.2 fL (81.0-99.0); MEAN PLATELET VOLUME 10.4 fL (7.9-10.8); MONOCYTES # (AUTO) 0.9 10^3/uL (0.0-1.0); MONOCYTES % (AUTO) 9.5 %; NEUTROPHILS # (AUTO) 6.1 10^3/uL (1.5-6.6); NEUTROPHILS % (AUTO) 64.2 %; PLT - PLATELET COUNT 310 10^3/uL (130-450); RED BLOOD COUNT 4.11 10^6/uL (4.20-5.40); RED CELL DISTRIBUTION WIDTH 13.9 % (12.0-15.0); WHITE BLOOD COUNT 9.5 x10^3/uL (4.8-10.8)
== END 2023-11-21 07:08 | disposition home or self-care (01) ==
LOC: LAB.S 07:07
PROVIDERS: ATTEND Registered Nurse
DX: R79.9 Abnormal finding of blood chemistry, unspecified (principal)
CPT/HCPCS: 36415; 85025